=== PATIENT | male | born 1975 | race Caucasian/White ===

== ENCOUNTER 2017-02-14 21:34 | Emergency (ER) | payer OTHER ==
[~2017-02-14] VITALS: Ht 177.8 cm; Wt 81.6 kg
--- NOTE | ~2017-02-14 | CR142 ---
[facility] A Service [facility] RADIOLOGY TEXT RESULTS PATIENT: HOMER ADWSON LOCATION: SED : 79 UNIT #: [id number] AGE: [address]: Xavier Lemos MD SEX: M ORDER DR: [id number] [place] [id number] E MR#: [id number] Acc #: [id number] NAME: HOMER DAWSON : 1975 SEX: M STUDY DATE/TIME: 02/14/2017 22:31 UNIT: SED ROOM: STUDY DESCRIPTION: CR Hand Min 3 Views Rt Attending Physician: Xavier Lemos M.D. Ordering Physician: Xavier Lemos M.D. Primary Care Physician: Art Beebe M.D. MEDICAL IMAGING REPORT This report is preliminary unless electronic signature is present. EXAM Right hand 02/14/2017 HISTORY 41-year-old male with right hand pain and swelling after punching a wall yesterday. COMPARISON None. FINDINGS Three views of the right hand demonstrate a questionable small avulsion fracture off the ulnar base of the fifth metacarpal. There is some soft tissue swelling over the dorsal and ulnar aspect of the hand. Correlation with point tenderness in this location. No dislocation. IMPRESSION Mild soft tissue swelling over the dorsal and ulnar aspect of the hand with a questionable small avulsion fracture off the ulnar base of the fifth metacarpal. Correlation for point tenderness in this location. Dictated by... Karson Justice M.D. THIS IS AN ELECTRONICALLY VERIFIED REPORT Karson Justice M.D. at 02/15/2017 2:44 PM YOLANDE/lucia TD: 02/15/2017 09:00 JOB #: [id number] [facility] A Service [facility] RADIOLOGY TEXT RESULTS PATIENT: HOMER DAWSON LOCATION: SED : 77 UNIT #: [id number] AGE: [address]: Xavier Lemos MD SEX: M ORDER DR: MEDICAL IMAGING REPORT Page 1 of 1
--- NOTE | ~2017-02-14 | CR58 ---
[facility] A Service of [facility] RADIOLOGY TEXT RESULTS PATIENT: HOMER DAWSON LOCATION: SED : [birth year] UNIT #: [id number] AGE: [address]: Xavier Lemos MD SEX: M ORDER DR: [id number] [address] [id number] [id number] E MR#: [id number] Acc #: [id number] NAME: HOMER DAWSON : 1975 SEX: M STUDY DATE/TIME: 02/14/2017 22:31 UNIT: SED ROOM: STUDY DESCRIPTION: CR Cervical Spine 2 or 3 Views Attending Physician: Xavier Lemos M.D. Ordering Physician: Xavier Lemos M.D. Primary Care Physician: Art Beebe M.D. MEDICAL IMAGING REPORT This report is preliminary unless electronic signature is present. EXAM Cervical spine, 02/14/2017. HISTORY 41-year-old male with right-sided neck pain for 3-4 weeks. COMPARISON None. FINDINGS Four views of the cervical spine demonstrate no acute fracture or subluxation. Vertebral body heights and alignment are normally maintained. Prevertebral soft tissues are normal. Atlantoaxial relationship normal. Cervicothoracic junction is unremarkable. Disc spaces and facets appear within expected limits. IMPRESSION Unremarkable cervical spine. Dictated by... Karson Justice M.D. THIS IS AN ELECTRONICALLY VERIFIED REPORT Karson Justice M.D. at 02/15/2017 2:44 PM YOLANDE/silvestre TD: 02/15/2017 08:55 JOB #: [id number] MEDICAL IMAGING REPORT Page 1 of 1
[~2017-02-14 21:34] MED LIST: AMOXICILLIN500 M1 PO; CELEXA; NO MEDICATIONS; VOLTAREN50 MG PO
[2017-02-14] MEDS ORDERED: SUBOXONE 8 MG-1 EAC1 SL (21:43)
[2017-02-14 23:04] LABS: BASOPHIL% 0.8 % (0-2.5); EOSINOPHIL# 0.1 X10e3 (0-0.7); EOSINOPHIL% 2.2 % (0.0-7.0); HEMATOCRIT 33.4 % (38.0-50.0); HEMOGLOBIN 11.4 gm/dL (13.0-16.0); LYMPHOCYTE# 1.5 X10e3 (1.0-3.5); LYMPHOCYTE% 24.3 % (17.0-45.0); MEAN CELL VOLUME 86.2 FL (83-96); MEAN CORPUSCULAR HEMOGLOBIN 29.4 PG (28-34); MEAN CORPUSCULAR HGB CONC 34.1 g/dL (30-36); MEAN PLATELET VOLUME 8.9 FL (6.5-11.5); MONOCYTE# 0.5 X10e3 (0-1.0); MONOCYTE% 7.2 % (3.0-12.0); NEUTROPHIL# 4.2 X10e3 (1.5-7.1); NEUTROPHIL% 65.5 % (40-75); PLATELET COUNT 185 X10e3 (140-420); RED BLOOD COUNT 3.87 X10e (3.90-5.60); WHITE BLOOD COUNT 6.3 X10e3 (4.0-10.5)
[2017-02-14 23:06] LABS: DIFF IND NO
[2017-02-14 23:19] LABS: BUN/CREATININE RATIO 8.57; CALCIUM SERUM 8.2 mg/dL (8.4-10.2); CREATININE SERUM 0.7 mg/dL (0.6-1.4); GLOM FILT RATE Estimated 118.9 mL/min (>60); POTASSIUM 3.1 mmol/L (3.5-5.1)
== END 2017-02-15 00:03 | disposition home or self-care (01) ==
LOC: SED 21:34
PROVIDERS: Emergency Medicine
DX: S60.221A Contusion of right hand, initial encounter (principal); L02.414 Cutaneous abscess of left upper limb; E87.6 Hypokalemia; F17.200 Nicotine dependence, unspecified, uncomplicated; W22.01XA Walked into wall, initial encounter; Y92.9 Unspecified place or not applicable
CPT/HCPCS: 10060; 36415; 72040; 73130; 80048; 85025; 87070; 87077; 87186; 87205; 96360; 99284